=== PATIENT | male | born 1965 | race Caucasian/White ===

== ENCOUNTER 2017-08-27 21:39 | Inpatient (IN) | payer OTHER ==
[2017-08-28] MEDS ORDERED: SODIUM CHLORIDE 1,000 ML IV STA ×2 (00:48→14:26)
--- NOTE | 2017-08-28 00:49 | PDOC ---
History of Present Illness - General History Source: Patient Exam Limitations: No Limitations - History of Present Illness Travel History: Yes Initial Comments: 08/28/17 00:55 52 yo M with no pmhx who presents today with fever and diarrhea. Patient arrived from [facility] today. He denies any sick contacts while there. He denies any cough, vomiting, nausea, cp or SOB. He denies any allergies. <Franca Castrejon - Last Filed: 08/28/17 05:29> - General History Source: Patient <Baldomero Harris - Last Filed: 08/28/17 05:32> - General Chief Complaint: Diarrhea Stated Complaint: SICK Time Seen by Provider: 08/28/17 00:45 Past History <Franca Castrejon - Last Filed: 08/28/17 05:29> - Past Medical History Kidney Stones: Yes - Suicide/Smoking/Psychosocial Hx Smoking Status: No Smoking History: Never smoked Number of Cigarettes Smoked Daily: 0 Hx Alcohol Use: No Drug/Substance Use Hx: No Substance Use Type: None <Baldomero Harris - Last Filed: 08/28/17 05:32> - Past Medical History Allergies/Adverse Reactions: Allergies Allergy/AdvReac Type Severity Reaction Status Date / Time No Known Allergies Allergy Verified 08/27/17 21:49 Home Medications: Ambulatory Orders Albuterol Sulfate Inhaler - [Ventolin HFA Inhaler -] 2 inh PO Q4H PRN #1 inh 04/14 Azithromycin [Zithromax Z-STEPHEN (5 DAYS) -] 250 mg PO ASDIR #6 tablet 08/05/15 Review of Systems - Review of Systems Able to Perform ROS?: Yes Comments:: 08/28/17 00:55 CONSTITUTIONAL: Present: fever Absent: chills, diaphoresis, generalized weakness, malaise, loss of appetite HEENT: Absent: rhinorrhea, nasal congestion, throat pain, throat swelling, difficulty swallowing, mouth swelling, ear pain, eye pain, visual Changes CARDIOVASCULAR: Absent: chest pain, syncope, palpitations, irregular heart rate, lightheadedness , peripheral edema RESPIRATORY: Absent: cough, shortness of breath, dyspnea with exertion, orthopnea, wheezing, stridor, hemoptysis GASTROINTESTINAL: Present: diarrhea. Absent: abdominal pain, abdominal distension, nausea, vomiting, constipation, melena, hematochezia GENITOURINARY: Absent: dysuria, frequency, urgency, hesitancy, hematuria, flank pain, genital pain MUSCULOSKELETAL: Absent: myalgia, arthralgia, joint swelling SKIN: Absent: rash, itching, pallor HEMATOLOGIC/IMMUNOLOGIC: Absent: easy bleeding, easy bruising, lymphadenopathy, frequent infections ENDOCRINE: Absent: unexplained weight gain, unexplained weight loss, heat intolerance, cold intolerance NEUROLOGIC: Absent: headache, focal weakness or paresthesias, dizziness, unsteady gait, seizure, mental status changes, bladder or bowel incontinence PSYCHIATRIC: Absent: anxiety, depression, suicidal or homicidal ideation, hallucinations. <StuartviriFranca ruelas - Last Filed: 08/28/17 05:29> *Physical Exam - Vital Signs Last Vital Signs Temp Pulse Resp BP Pulse Ox 101.1 F H 144 H 20 103/71 99 08/27/17 21:47 08/27/17 21:47 08/27/17 21:47 08/27/17 21:47 08/27/17 21:47 - Physical Exam Comments: 08/28/17 00:56 GENERAL: Well developed, well nourished. Awake and alert. +In mild distress. HEENT: +Oral mucosa very dry. Normocephalic, atraumatic. PERRLA, EOMI. No conjunctival pallor. Sclerae are non-icteric. Oropharynx is clear. NECK: Supple. Full ROM. No JVD. Carotid pulses 2+ and symmetric, without bruits. No thyromegaly. No lymphadenopathy. CARDIOVASCULAR: Regular rate and rhythm. No murmurs, rubs, or gallops. Distal pulses are 2+ and symmetric. PULMONARY: No evidence of respiratory distress. Lungs clear to auscultation bilaterally. No wheezing, rales or rhonchi. ABDOMINAL: +Hyperactive bowel sounds. Soft. Non-tender. Non-distended. No rebound or guarding. No organomegaly. MUSCULOSKELETAL Normal range of motion at all joints. No bony deformities or tenderness. No CVA tenderness. EXTREMITIES: No cyanosis. No clubbing. No edema. No calf tenderness. SKIN: Warm and dry. Normal capillary refill. No rashes. No jaundice. NEUROLOGICAL: Alert, awake, appropriate. Cranial nerves 2-12 intact. No deficits to light touch and temperature in face, upper extremities and lower extremities. No motor deficits in the in face, upper extremities and lower extremities. Normoreflexic in the upper and lower extremities. Normal speech. PSYCHIATRIC: Cooperative. Good eye contact. Appropriate mood and affect. <Franca Castrejon - Last Filed: 08/28/17 05:29> - Vital Signs Last Vital Signs Temp Pulse Resp BP Pulse Ox 101.1 F H 144 H 20 103/71 99 08/27/17 21:47 08/27/17 21:47 08/27/17 21:47 08/27/17 21:47 08/27/17 21:47 <Baldomero Harris - Last Filed: 08/28/17 05:32> ED Treatment Course - LABORATORY CBC & Chemistry Diagram: 08/28/17 00:55 08/28/17 00:55 - RADIOLOGY Radiology Studies Ordered: 08/28/17 05:29 THIS IS A PRELIMINARY REPORT FROM [facility] DATE OF SERVICE: 2017-08-28 03:13:38 IMAGES: [id number] EXAM: CT ABDOMEN AND PELVIS without contrast HISTORY:Diarrhea. Rule out colitis. COMPARISON: None. FINDINGS:Lung bases are clear. The visualized cardiac chambers are normal size and configuration. Normal unenhanced liver, gallbladder, pancreas, spleen, adrenal glands and kidneys. The stomach and small bowel are normal. There is moderate inflammation of the proximal and mid descending colon which may be secondary to infection or inflammatory bowel disease. No bowel obstruction, abscess or free air. There is no aortic aneurysm. There is no significant retroperitoneal lymphadenopathy. The appendix is normal The urinary bladder and prostate gland are normal. No pelvic free fluid is identified. There is no significant pelvic lymphadenopathy. IMPRESSION: Moderate descending colitis may be secondary to infection or inflammatory bowel disease or THIS DOCUMENT HAS BEEN ELECTRONICALLY SIGNED Yuan Armendariz MD <Franca Castrejon - Last Filed: 08/28/17 05:29> - LABORATORY CBC & Chemistry Diagram: 08/28/17 00:55 08/28/17 00:55 <Baldomero Harris - Last Filed: 08/28/17 05:32> Medical Decision Making - Medical Decision Making 08/28/17 05:32 Dr. Harris: The scribe's documentation has been prepared under my direction and personally reviewed by me in its entirery. I confirm that the note above accurately reflects all work, treatment, procedures, and medical decision making performed by me. <Baldomero Harris - Last Filed: 08/28/17 05:32> *DC/Admit/Observation/Transfer - Attestations Scribe Attestion: 08/28/17 00:56 Documentation prepared by SYLVIA Agustin, acting as associate medical director for Baldomero Harris DO. <Franca Castrejon - Last Filed: 08/28/17 05:29> - Discharge Dispostion Admit: Yes <Baldomero Harris - Last Filed: 08/28/17 05:32> Diagnosis at time of Disposition: Colitis - Referrals Referrals: Joya Miranda MD [Primary Care Provider] -
[2017-08-28 01:04] LABS: BASOPHIL 0.3 % (0-2.0); EOSINOPHIL 0.1 % (0-4.5); MCH 30.4 pg (25.7-33.7); MCHC 33.7 g/dl (32.0-35.9); MEAN CELL VOLUME 90.2 fl (80-96); NEUTROPHILS 91.6 % (42.8-82.8); PLATELET COUNT 240 K/MM3 (134-434); RDW 13.3 % (11.9-15.9); WHITE BLOOD COUNT 19.2 K/mm3 (4.0-10.0)
[2017-08-28] MEDS: ACETAMINOPHEN 500 MG TABLET (FP) PO ONE ×2 (01:06→01:11)
[2017-08-28] MEDS ORDERED: ACETAMINOPHEN 325 MG TABLET (FP) ONE ×2 (01:07→06:46)
[2017-08-28 01:14] LABS: INR 1.28 (0.82-1.09); PROTHROMBIN TIME (PATIENT) 14.1 SEC (9.98-11.88)
[2017-08-28 01:25] LABS: ALBUMIN 3.8 g/dl (3.4-5.0); ANION GAP 10 (8-16); BILIRUBIN,TOTAL 1.6 mg/dL (0.2-1.0); CALCIUM 8.6 mg/dL (8.5-10.1); CO2 23 mmol/L (21-32); GLUCOSE,RANDOM 110 mg/dL (74-106); MAGNESIUM 1.8 mg/dL (1.8-2.4); SGOT/AST 17 U/L (15-37); SGPT/ALT 27 U/L (12-78); TOT PROT 6.6 g/dl (6.4-8.2)
[2017-08-28 01:27] LABS: ALK PHOS 76 U/L (45-117); CPK 170 IU/L (39-308); TROPONIN I < 0.02 ng/ml (0.00-0.05)
[2017-08-28 01:29] LABS: ACETONE SERUM NEGATIVE (NEGATIVE)
[2017-08-28] MEDS ORDERED: LEVOFLOXACIN 500 MG IVPB 100 ML IVPB ONE ×2 (01:58→03:00)
[2017-08-28] MEDS ORDERED: METRONIDAZOLE 500 MG PREMIXED 100 ML IVPB ONE ×3 (01:58→11:11)
[2017-08-28 02:52] LABS: URINE APPEARANCE CLEAR; URINE BILIRUBIN NEGATIVE (NEGATIVE); URINE BLOOD NEGATIVE (NEGATIVE); URINE COLOR LTYELLOW; URINE GLUCOSE (UA) NEGATIVE (NEGATIVE); URINE KETONE 1+ (NEGATIVE); URINE LEUK ESTERASE NEGATIVE (NEGATIVE); URINE NITRITE NEGATIVE (NEGATIVE); URINE PROTEIN NEGATIVE (NEGATIVE); URINE UROBILINOGEN NEGATIVE mg/dL (0.2-1.0)
[2017-08-28] MEDS ORDERED: KETOROLAC TROMETHAMINE 30 MG/1 ML VIAL IVPUSH ONE (03:48)
[2017-08-28] MEDS ORDERED: KETOROLAC TROMETHAMINE 30 MG/1 ML VIAL ONE (03:55)
--- NOTE | 2017-08-28 06:28 | HP ---
CHIEF COMPLAINT: diarrhea, fever PCP: none HISTORY OF PRESENT ILLNESS: This is a 52 year old male without significant past medical history who presented to the ED with a 2 day history of fever and diarrhea. Pt just returned from [facility] 2 nights ago. He states that the diarrhea started while he was still there but the fever started after. He reports that he was in all different environments/areas of the country and ate and drank freely. He reports some associated abdominal pain. He points to both sides of his abdomen in the most lateral aspects. He denies nausea or vomiting. He states that at times there is blood on his brown stool and that the stool is loose and watery. ER course was notable for: (1) WBC 19.2, lactic acid 0.7 (2) CT abd/pel c/w colitis Recent Travel: [facility] PAST MEDICAL HISTORY: kidney stones cholesterol PAST SURGICAL HISTORY: none Social History: Smoking: pt denies Alcohol: pt denies Drugs: pt denies Family History: mother alive, CVA age 68, HTN, osteoporosis father alive and well 5 brothers and 2 sisters without medical problems 2 daughters, one with asthma and allergies Allergies No Known Allergies Allergy (Verified 08/27/17 21:49) HOME MEDICATIONS: no current medications REVIEW OF SYSTEMS CONSTITUTIONAL: Present: fever, chills Absent: diaphoresis, generalized weakness, malaise, loss of appetite, weight change HEENT: Absent: rhinorrhea, nasal congestion, throat pain, throat swelling, difficulty swallowing, mouth swelling, ear pain, eye pain, visual changes CARDIOVASCULAR: Absent: chest pain, syncope, palpitations, irregular heart rate, lightheadedness , peripheral edema RESPIRATORY: Absent: cough, shortness of breath, dyspnea with exertion, orthopnea, wheezing, stridor, hemoptysis GASTROINTESTINAL: Absent: abdominal pain, abdominal distension, nausea, vomiting, constipation, melena, hematochezia GENITOURINARY: Present: diarrhea Absent: dysuria, frequency, urgency, hesitancy, hematuria, flank pain, genital pain MUSCULOSKELETAL: Absent: myalgia, arthralgia, joint swelling, back pain, neck pain SKIN: Absent: rash, itching, pallor HEMATOLOGIC/IMMUNOLOGIC: Absent: easy bleeding, easy bruising, lymphadenopathy, frequent infections ENDOCRINE: Absent: unexplained weight gain, unexplained weight loss, heat intolerance, cold intolerance NEUROLOGIC: Absent: headache, focal weakness or paresthesias, dizziness, unsteady gait, seizure, mental status changes, bladder or bowel incontinence PSYCHIATRIC: Absent: anxiety, depression, suicidal or homicidal ideation, hallucinations. PHYSICAL EXAMINATION Vital Signs - 24 hr 3 08/27/17 08/28/17 21:47 02:50 Temperature 101.1 F H 99 F Pulse Rate 144 H Respiratory 20 Rate Blood Pressure 103/71 O2 Sat by Pulse 99 Oximetry (%) GENERAL: Awake, alert, and fully oriented, in no acute distress. HEAD: Normal with no signs of trauma. EYES: Pupils equal, round and reactive to light, extraocular movements intact, sclera anicteric, conjunctiva clear. No lid lag. EARS, NOSE, THROAT: Ears normal, nares patent, oropharynx clear without exudates. Moist mucous membranes. NECK: Normal range of motion, supple without lymphadenopathy, JVD, or masses. LUNGS: Breath sounds equal, clear to auscultation bilaterally. No wheezes, and no crackles. No accessory muscle use. HEART: Regular rate and rhythm, normal S1 and S2 without murmur, rub or gallop. ABDOMEN: Soft, nontender, not distended, normoactive bowel sounds, no guarding, no rebound, no masses. No hepatomegaly or splenomegaly. MUSCULOSKELETAL: Normal range of motion at all joints. No bony deformities or tenderness. No CVA tenderness. UPPER EXTREMITIES: 2+ pulses, warm, well-perfused. No cyanosis. No clubbing. No peripheral edema. LOWER EXTREMITIES: 2+ pulses, warm, well-perfused. No calf tenderness. No peripheral edema. NEUROLOGICAL: Cranial nerves II-XII intact. Normal speech. Normal gait. PSYCHIATRIC: Cooperative. Good eye contact. Appropriate mood and affect. SKIN: Warm, dry, normal turgor, no rashes or lesions noted, normal capillary refill. Laboratory Results - last 24 hr 3 08/28/17 08/28/17 08/28/17 00:55 00:55 00:55 02:00 WBC 19.2 H D RBC 4.78 Hgb 14.5 Hct 43.2 MCV 90.2 MCH 30.4 MCHC 33.7 RDW 13.3 Plt Count 240 MPV 8.0 D Neutrophils % 91.6 H D Lymphocytes % 2.4 L D Monocytes % 5.6 Eosinophils % 0.1 D Basophils % 0.3 PT with INR 14.10 H INR 1.28 H Sodium 136 Potassium 3.7 Chloride 103 Carbon Dioxide 23 Anion Gap 10 BUN 18 D Creatinine 1.0 D Creat Clearance w eGFR > 60 Random Glucose 110 H Lactic Acid 0.7 Calcium 8.6 Magnesium 1.8 Total Bilirubin 1.6 H D AST 17 ALT 27 Alkaline Phosphatase 76 Creatine Kinase 170 Creatine Kinase Index 0.5 CK-MB (CK-2) < 1.000 Troponin I < 0.02 Total Protein 6.6 Albumin 3.8 Lipase 58 L Urine Color Urine Appearance Urine pH Urine Protein Urine Glucose (UA) Urine Ketones Urine Blood Urine Nitrite Urine Bilirubin Urine Urobilinogen Acetone, Qual Negative Blood Type Antibody Screen 3 Urine Color Ltyellow 08/28/17 02:41 Urine Appearance Clear 08/28/17 02:41 Urine pH 6.0 (5.0-8.0) 08/28/17 02:41 Urine Protein Negative (NEGATIVE) 08/28/17 02:41 Urine Glucose (UA) Negative (NEGATIVE) 08/28/17 02:41 Urine Ketones 1+ (NEGATIVE) H 08/28/17 02:41 Urine Blood Negative (NEGATIVE) 08/28/17 02:41 Urine Nitrite Negative (NEGATIVE) 08/28/17 02:41 Urine Bilirubin Negative (NEGATIVE) 08/28/17 02:[address] ABDOMEN AND PELVIS without contrast HISTORY:Diarrhea. Rule out colitis. COMPARISON: None. FINDINGS:Lung bases are clear. The visualized cardiac chambers are normal size and configuration. Normal unenhanced liver, gallbladder, pancreas, spleen, adrenal glands and kidneys. The stomach and small bowel are normal. There is moderate inflammation of the proximal and mid descending colon which may be secondary to infection or inflammatory bowel disease. No bowel obstruction, abscess or free air. There is no aortic aneurysm. There is no significant retroperitoneal lymphadenopathy. The appendix is normal The urinary bladder and prostate gland are normal. No pelvic free fluid is identified. There is no significant pelvic lymphadenopathy. IMPRESSION: Moderate descending colitis may be secondary to infection or inflammatory bowel disease or THIS DOCUMENT HAS BEEN ELECTRONICALLY SIGNED Yuan Armendariz MD 08/28/2017 05:25 EST ASSESSMENT/PLAN: 52yM with PMH kidney stones, hyperlipidemia presented to the ED with diarrhea and fever x 2 days. He is being admitted for further evaluation and treatment. Colitis, infectious - cont levaquin and flagyl - follow stool cultures and O&P - tylenol for fever - NS @ 125cc/hr - clear liquid DVT PPX - low risk, fully ambulatory, encourage ambulation FEN - NS@125cc/hr - Repeat BMP, Mg, Phos - clear liquid diet Dispo: Pt currently requires inpatient management of his emergent condition. Visit type - Emergency Visit Emergency Visit: Yes ED Registration Date: 08/27/17 Care time: The patient presented to the Emergency Department on the above date and was hospitalized for further evaluation of their emergent condition. - New Patient This patient is new to me today: Yes Date on this admission: 08/28/17 - Critical Care Critical Care patient: No
[2017-08-28] MEDS ORDERED: ACETAMINOPHEN 325 MG TABLET (FP) PO ONE (06:55)
[2017-08-28] MEDS: SODIUM CHLORIDE 1,000 ML IV SCH (07:01)
--- NOTE | 2017-08-28 10:27 | CON.GI ---
Consult Consult Specialty:: GI Reason for Consultation:: Diarrhea, recently traveled to to [facility] - History of Present Illness Chief Complaint: Abdominal pain, diarrhea of 3 days duration History of Present Illness: A 52 yo healthy male who came back from [facility] 1 day ago. Reports acute onset LLQ pain and frequent, brown, small volume, loose, non-bloody stools, while on the plane. Reports chills. Denies vomiting, skin rashes, joint, back involvement. While in [facility], no food, or water discretions. No ill contacts. No history of recent ABx use. History of recurrent, short, diarrheal episodes for which he takes OTC remedies. No history of IBD, or other chronic GI issues in the family - History Source History Provided By: Patient Limitations to Obtaining History: Language Barrier - Past Medical History Gastrointestinal: Yes: Other (Recurent episodes of diarrhea for many years, well controlled with OTC remedies). No: Ascites, Cancer, Constipation, Crohn's Disease, Diverticulitis, Diverticulosis, Esophageal Varices, Gastritis, GERD, GI Bleed, Hemorrhoids, Hiatal Hernia, Inflamatory Bowel Disease, Irritable Bowel Disease, Pancreatitis, Peptic Ulcer Disease, Ulcerative Colitis Hepatobiliary: No: Cirrhosis, Cholelithiasis, Cholecystitis, Choledocholithiasis , Hepatitis A, Hepatitis B, Hepatitis C Infectious Disease: No: C-Diff Rheumatology: No: Vasculitis Endocrine: No: Hyperthyroidism, Hypothyroidism - Past Surgical History Past Surgical History: Yes: None - Alcohol/Substance Use Hx Alcohol Use: No - Smoking History Smoking history: Never smoked Aproximately how many cigarettes per day: 0 Home Medications - Allergies Allergies/Adverse Reactions: Allergies Allergy/AdvReac Type Severity Reaction Status Date / Time No Known Allergies Allergy Verified 08/27/17 21:49 - Home Medications Home Medications: Ambulatory Orders Acetaminophen [Tylenol] 2 tab PO QID 08/28/17 Family Disease History - Family Disease History Family History: Unremarkable (Negative for colitis, chronic GI issues, specifically no history of IBD) Review of Systems - Review of Systems Constitutional: reports: Chills. denies: Lethargy, Loss of Appetite, Malaise, Night Sweats, Unintentional Wgt. Loss, Weakness Eyes: reports: No Symptoms HENT: reports: No Symptoms Neck: reports: No Symptoms Cardiovascular: reports: No Symptoms Respiratory: reports: No Symptoms Gastrointestinal: reports: Abdominal Pain, Bloating, Diarrhea, Nausea, Rectal Bleeding. denies: Dysphagia, Indigestion, Melena, Vomiting, Vomiting Blood Genitourinary: reports: No Symptoms Musculoskeletal: reports: No Symptoms Integumentary: reports: No Symptoms Neurological: reports: No Symptoms Endocrine: reports: No Symptoms Hematology/Lymphatic: reports: No Symptoms Physical Exam-GI Vital Signs: Vital Signs Period Temp Pulse Resp BP Sys/[place] Pulse Ox Last 24 Hr 97.6 F-101.1 F 98-144 20-97 101-107/61-71 98-99 Constitutional: Yes: Well Nourished, No Distress, Calm Eyes: Yes: Conjunctiva Clear HENT: Yes: Atraumatic Neck: Yes: Supple Cardiovascular: Yes: Regular Rate and Rhythm Respiratory: Yes: Regular, CTA Bilaterally Gastrointestinal Inspection: No: Ascites, Distention, Hernia, Scars ...Auscultate: Yes: Normoactive Bowel Sounds ...Palpate: Yes: Soft, Tenderness (LLQ). No: Firm/Rigid, Guarding, Hepatomegaly , Mass, Pulsatile Mass, Splenomegaly, Tenderness, Epigastium, Tenderness, Rebound ...Percussion: Yes: Tympanitic. No: Fluid Wave Musculoskeletal: No: Joint Swelling, Muscle Pain Edema: No Integumentary: No: Jaundice, Rash Labs: Laboratory Tests 08/28/17 08/28/17 08/28/17 00:55 00:55 00:55 WBC 19.2 H D RBC 4.78 Hgb 14.5 Hct 43.2 MCV 90.2 MCH 30.4 MCHC 33.7 RDW 13.3 Plt Count 240 MPV 8.0 D Neutrophils % 91.6 H D Lymphocytes % 2.4 L D Monocytes % 5.6 Eosinophils % 0.1 D Basophils % 0.3 PT with INR 14.10 H INR 1.28 H Sodium 136 Potassium 3.7 Chloride 103 Carbon Dioxide 23 Anion Gap 10 BUN 18 D Creatinine 1.0 D Creat Clearance w eGFR > 60 Random Glucose 110 H Lactic Acid Calcium 8.6 Magnesium 1.8 Total Bilirubin 1.6 H D AST 17 ALT 27 Alkaline Phosphatase 76 Creatine Kinase 170 Creatine Kinase Index 0.5 CK-MB (CK-2) < 1.000 Troponin I < 0.02 Total Protein 6.6 Albumin 3.8 Lipase 58 L Urine Color Urine Appearance Urine pH Ur Specific [place] Urine Protein Urine Glucose (UA) Urine Ketones Urine Blood Urine Nitrite Urine Bilirubin Urine Urobilinogen Acetone, Qual Negative Blood Type Antibody Screen 08/28/17 08/28/17 08/28/17 01:00 02:00 02:41 WBC RBC Hgb Hct MCV MCH MCHC RDW Plt Count MPV Neutrophils % Lymphocytes % Monocytes % Eosinophils % Basophils % PT with INR INR Sodium Potassium Chloride Carbon Dioxide Anion Gap BUN Creatinine Creat Clearance w eGFR Random Glucose Lactic Acid 0.7 Calcium Magnesium Total Bilirubin AST ALT Alkaline Phosphatase Creatine Kinase Creatine Kinase Index CK-MB (CK-2) Troponin I Total Protein Albumin Lipase Urine Color Ltyellow Urine Appearance Clear Urine pH 6.0 Ur Specific [place] <= 1.005 Urine Protein Negative Urine Glucose (UA) Negative Urine Ketones 1+ H Urine Blood Negative Urine Nitrite Negative Urine Bilirubin Negative Urine Urobilinogen Negative Acetone, Qual Blood Type O POSITIVE Antibody Screen Negative Active Orders - 24 Hr 08/28/17 00:48 EKG [ELECTROCARDIOGRAM] [CARD] Stat 08/28/17 00:55 BLOOD CULTURE Stat 08/28/17 02:41 Urine Culture [URINE CULTURE] Stat 08/28/17 04:30 STOOL CULTURE Stat STOOL FOR WBC BY GRAM STAIN Stat 08/28/17 05:31 Decision to Admit to Hospital Routine 08/28/17 06:29 Activity, OOB As tolerated Activity, Shower Ad renuka Vital Signs Q6H VTE Risk Level/Orders Routine 08/28/17 06:30 Sodium Chloride [Normal Saline -] 1,000 ml IV ASDIR 08/28/17 06:31 Early ambulation QS 08/28/17 07:21 PARASITES CRYPTO/GIARDIA AG Urgent 08/28/17 08:46 Physician Consultation Physician 1 Reminder: new phy cons See Order 08/28/17 10:00 Metronidazole 500 mg Premixed [Flagyl 500Mg Premixed Ivpb -] 100 ml IVPB Q8H-IV 08/28/17 22:00 Levofloxacin 500 mg Ivpb [Levaquin 500 mg Premixed Ivpb -] 100 ml IVPB HS 08/28/17 Breakfast Clear Liquid [DT] 08/28/17 Lunch Full Liquid Diet [DT] Home Medication List Medication Instructions Recorded Confirmed Type Acetaminophen [Tylenol] 2 tab PO QID 08/28/17 08/28/17 History Active Medications Generic Name Dose Route Start Last Admin Trade Name Isaak PRN Reason Stop Dose Admin Sodium Chloride 1,000 mls @ 125 mls/hr 08/28/17 06:30 08/28/17 07:01 Normal Saline - IV 125 mls/hr ASDIR ALHAJI Administration Metronidazole 100 mls @ 100 mls/hr 08/28/17 10:00 Flagyl 500mg Premixed Ivpb - IVPB Q8H-IV ALHAJI Levofloxacin 100 mls @ 100 mls/hr 08/28/17 22:00 Levaquin 500 Mg Premixed Ivpb - IVPB HS ALHAJI Imaging - Results Cat Scan: Report Reviewed Problem List - Problems (1) Diarrhea Code(s): R19.7 - DIARRHEA, UNSPECIFIED Qualifiers: Diarrhea type: presumed infectious Qualified Code(s): A09 - Infectious gastroenteritis and colitis, unspecified (2) Colitis Code(s): K52.9 - NONINFECTIVE GASTROENTERITIS AND COLITIS, UNSPECIFIED (3) Recent history of foreign travel Code(s): Z78.9 - OTHER SPECIFIED HEALTH STATUS Assessment/Plan Acute onset small volume diarrhea and abdominal pain with a CT scan of the abdomen suggestive of colitis. Likely infectious, likely bacterial. History of recurrent, mild diarrheal episodes that respond well to OTC remedies. No family history of chronic GI conditions/IBD. Non-toxic appearance Levaquin and flagyl started, stool work up ordered (would add c. diff toxin) Monitor electrolytes, BUN, WBC count, hematochezia Clear liquid diet There is a possibility of IBD. The patient will need a colonoscopy in 6-8 weeks (also due for screening)
[2017-08-28] MEDS: METRONIDAZOLE 500 MG PREMIXED 100 ML IVPB SCH ×2 (11:16→18:49)
[2017-08-28 14:13] VITALS: BMI 25.2
[2017-08-28] MEDS: ACETAMINOPHEN 325 MG TABLET (FP) PO PRN ×2 (14:52→22:53)
[2017-08-28] MEDS ORDERED: morphine CARPU-JECT 2 MG/1 ML DISP.SYRIN IVPUSH ONE (21:27)
[2017-08-28] MEDS ORDERED: LEVOFLOXACIN 500 MG IVPB 100 ML IVPB SCH (22:00)
[2017-08-28] MEDS: COD LIVER OIL/ZINC OXIDE PASTE 56 GM TUBE TP PRN (22:51)
[2017-08-28 23:57] LABS: HIV 1 & 2 AB NEGATIVE; HIV 1 AGp24 NEGATIVE
[2017-08-29] MEDS: METRONIDAZOLE 500 MG PREMIXED 100 ML IVPB SCH ×3 (02:58→17:48)
[2017-08-29] MEDS: LEVOFLOXACIN 750 MG IVPB 150 ML IVPB SCH (03:59)
[2017-08-29] MEDS: SODIUM CHLORIDE 1,000 ML IV SCH (06:33)
--- NOTE | 2017-08-29 07:09 | PN ---
Progress Note, Physician History of Present Illness: Not in distress. Non-toxic appearance. Reports generalized, lower abdominal pain. No nausea, vomiting. 4 green, watery bowel movements. Tmax 102. Tolerating liquids well - Current Medication List Current Medications: Active Medications Acetaminophen (Tylenol -) 650 mg PO Q6H PRN PRN Reason: FEVER OR PAIN Last Admin: 08/28/17 22:53 Dose: 650 mg Sodium Chloride (Normal Saline -) 1,000 mls @ 125 mls/hr IV ASDIR [facility] Last Admin: 08/29/17 06:33 Dose: 125 mls/hr Metronidazole (Flagyl 500mg Premixed Ivpb -) 100 mls @ 100 mls/hr IVPB Q8H-IV [facility] Last Admin: 08/29/17 02:58 Dose: 100 mls/hr Levofloxacin (Levaquin 750 Mg Premixed Ivpb -) 150 mls @ 100 mls/hr IVPB DAILY@ 0400 [facility] Last Admin: 08/29/17 03:59 Dose: 100 mls/hr Zinc Oxide (Desitin Diaper Rash Oint -) 1 applic TP ASDIR PRN PRN Reason: HYGEINE Last Admin: 08/28/17 22:51 Dose: 1 applic - Objective Vital Signs: Vital Signs Temperature 100.0 F H 08/29/17 02:00 Pulse Rate 95 H 08/29/17 02:00 Respiratory Rate 18 08/29/17 02:00 Blood Pressure 113/70 08/29/17 02:00 O2 Sat by Pulse Oximetry (%) 96 08/28/17 22:00 Constitutional: Yes: No Distress, Calm Eyes: Yes: Conjunctiva Clear HENT: No: Nasal Congestion Neck: Yes: Supple Cardiovascular: Yes: Regular Rate and Rhythm. No: Bradycardia, Tachycardia Respiratory: Yes: Regular, CTA Bilaterally Gastrointestinal: Yes: Normal Bowel Sounds, Soft, Other (see above). No: Ascites, Distention, Hematemesis, Palpable Mass, Pulsatile Mass, Rectal Bleeding , Tenderness, Epigastrium, Tenderness, Rebound, Vomiting Integumentary: No: Jaundice, Rash Neurological: Yes: Alert, Oriented Labs: INR, PTT INR 1.28 (0.82-1.09) H 08/28/17 00:55 Microbiology 08/28/17 01:00 Blood - Peripheral Venous Blood Culture - Preliminary NO GROWTH OBTAINED AFTER 24 HOURS, INCUBATION TO CONTINUE FOR 4 DAYS. 08/28/17 00:55 Blood - Peripheral Venous Blood Culture - Preliminary NO GROWTH OBTAINED AFTER 24 HOURS, INCUBATION TO CONTINUE FOR 4 DAYS. 08/28/17 04:30 Stool Gram Stain - Final 08/28/17 07:21 Stool Cryptosporidium Antigen - Final 08/28/17 07:21 Stool Giardia Antigen (ROSANNE) - Final Laboratory Results - last 24 hr 08/28/17 08/28/17 08/28/17 02:41 15:45 18:30 Lactic Acid 0.8 Urine Color Ltyellow Urine Appearance Clear Urine pH 6.0 Ur Specific [place] <= 1.005 Urine Protein Negative Urine Glucose (UA) Negative Urine Ketones 1+ H Urine Blood Negative Urine Nitrite Negative Urine Bilirubin Negative Urine Urobilinogen Negative HIV 1&2 Antibody Screen Negative HIV P24 Antigen Negative Abnormal Lab Results 08/28/17 02:41 Urine Ketones 1+ H Problem List - Problems (1) Diarrhea Code(s): R19.7 - DIARRHEA, UNSPECIFIED Qualifiers: Diarrhea type: presumed infectious Qualified Code(s): A09 - Infectious gastroenteritis and colitis, unspecified (2) Colitis Code(s): K52.9 - NONINFECTIVE GASTROENTERITIS AND COLITIS, UNSPECIFIED (3) Recent history of foreign travel Code(s): Z78.9 - OTHER SPECIFIED HEALTH STATUS Impression/Plan Impression/Plan: await c. diff results. clear liquid diet continue abx Visit type - Emergency Visit Emergency Visit: No - New Patient This patient is new to me today: No - Critical Care Critical Care patient: No
[2017-08-29 08:14] LABS: BASOPHIL 0.2 % (0-2.0); MCH 30.6 pg (25.7-33.7); MCHC 33.9 g/dl (32.0-35.9); MEAN CELL VOLUME 90.2 fl (80-96); MEAN PLT VOLUME 7.7 fl (7.5-11.1); NEUTROPHILS 90.5 % (42.8-82.8); PLATELET COUNT 200 K/MM3 (134-434); RDW 12.9 % (11.9-15.9); WHITE BLOOD COUNT 12.1 K/mm3 (4.0-10.0)
[2017-08-29 08:51] LABS: ANION GAP 8 (8-16); CO2 24 mmol/L (21-32); CREATININE 0.7 mg/dL (0.7-1.3); GLUCOSE,RANDOM 99 mg/dL (74-106); MAGNESIUM 1.8 mg/dL (1.8-2.4); PHOSPHOROUS 1.3 mg/dL (2.5-4.9)
[2017-08-29] MEDS: ACETAMINOPHEN 325 MG TABLET (FP) PO PRN (09:25)
[2017-08-29] MEDS ORDERED: POTASSIUM PHOSPHATE 20 MM in SODIUM CHLORIDE 250 ML IVPB ONE (10:00)
[2017-08-29] MEDS: KCL 10 MEQ IVPB 100 ML IVPB SCH ×3 (10:25→12:36)
--- NOTE | 2017-08-29 14:37 | PN ---
Progress Note (short form) - Note Progress Note: Subjective: The patient was seen and examined at the bedside, he reports feeling better today. He states he is still having mild diarrhea Current Medications Generic Name Dose Route Start Last Admin Trade Name Isaak PRN Reason Stop Dose Admin Acetaminophen 650 mg 08/28/17 14:36 08/29/17 09:25 Tylenol - PO 650 mg Q6H PRN Administration FEVER OR PAIN Sodium Chloride 1,000 mls @ 125 mls/hr 08/28/17 06:30 08/29/17 06:33 Normal Saline - IV 125 mls/hr ASDIR ALHAJI Administration Metronidazole 100 mls @ 100 mls/hr 08/28/17 10:00 08/29/17 09:25 Flagyl 500mg Premixed Ivpb - IVPB 100 mls/hr Q8H-IV ALHAJI Administration Levofloxacin 150 mls @ 100 mls/hr 08/29/17 04:00 08/29/17 03:59 Levaquin 750 Mg Premixed Ivpb - IVPB 100 mls/hr DAILY@0400 ALHAJI Administration Zinc Oxide 1 applic 08/28/17 21:28 08/28/17 22:51 Desitin Diaper Rash Oint - TP 1 applic ASDIR PRN Administration HYGEINE Objective : Vital Signs Period Temp Pulse Resp BP Sys/[place] Pulse Ox Last 24 Hr 99.5 F-102.7 F 95-122 18-24 113-126/57-80 96-98 Physical Exam: General: NAD, A&Ox3 Lungs: CTA bilaterally Heart: RRR, S1S2 Abd: Mild diffuse tenderness. Normoactive bowel sounds Ext: Warm, well-perfused. 2+ DP/PT bilaterally Neuro: CN 2-12 intact CBCD WBC 12.1 K/mm3 (4.0-10.0) H D 08/29/17 07:00 RBC 4.44 M/mm3 (4.00-5.60) 08/29/17 07:00 Hgb 13.6 GM/dL (11.7-16.9) 08/29/17 07:00 Hct 40.1 % (35.4-49) 08/29/17 07:00 MCV 90.2 fl (80-96) 08/29/17 07:00 MCHC 33.9 g/dl (32.0-35.9) 08/29/17 07:00 RDW 12.9 % (11.9-15.9) 08/29/17 07:00 Plt Count 200 K/MM3 (134-434) 08/29/17 07:00 MPV 7.7 fl (7.5-11.1) 08/29/17 07:00 CMP Sodium 138 mmol/L (136-145) 08/29/17 07:00 Potassium 3.3 mmol/L (3.5-5.1) L 08/29/17 07:00 Chloride 106 mmol/L (98-107) 08/29/17 07:00 Carbon Dioxide 24 mmol/L (21-32) 08/29/17 07:00 Anion Gap 8 (8-16) 08/29/17 07:00 BUN 5 mg/dL (7-18) L D 08/29/17 07:00 Creatinine 0.7 mg/dL (0.7-1.3) D 08/29/17 07:00 Creat Clearance w eGFR > 60 (>60) 08/28/17 00:55 Random Glucose 99 mg/dL (74-106) 08/29/17 07:00 Calcium 8.0 mg/dL (8.5-10.1) L 08/29/17 07:00 Total Bilirubin 1.6 mg/dL (0.2-1.0) H D 08/28/17 00:55 AST 17 U/L (15-37) 08/28/17 00:55 ALT 27 U/L (12-78) 08/28/17 00:55 Alkaline Phosphatase 76 U/L (45-117) 08/28/17 00:55 Total Protein 6.6 g/dl (6.4-8.2) 08/28/17 00:55 Albumin 3.8 g/dl (3.4-5.0) 08/28/17 00:55 CARDIAC ENZYMES Creatine Kinase 170 IU/L (39-308) 08/28/17 00:55 Troponin I < 0.02 ng/ml (0.00-0.05) 08/28/17 00:55 Microbiology 08/28/17 04:30 Stool Salmonella/Shigella Culture - Preliminary NO ENTERIC PATHOGENS, 24 HOURS, ON PRIMARY PLATES 08/28/17 04:30 Stool Yersinia Culture - Preliminary NO ENTERIC PATHOGENS, 24 HOURS, ON PRIMARY PLATES 08/28/17 04:30 Stool Vibrio Culture - Preliminary NO ENTERIC PATHOGENS, 24 HOURS, ON PRIMARY PLATES 08/28/17 04:30 Stool Escherichia coli 0157 Culture - Preliminary NO ENTERIC PATHOGENS, 24 HOURS, ON PRIMARY PLATES 08/28/17 02:41 Urine - Urine Clean Catch Urine Culture - Final NO GROWTH OBTAINED 08/28/17 16:20 Stool Clostridium difficile Antigen (ROSANNE) - Final 08/28/17 16:20 Stool Clostridium difficile Toxin Assay - Final 08/28/17 01:00 Blood - Peripheral Venous Blood Culture - Preliminary NO GROWTH OBTAINED AFTER 24 HOURS, INCUBATION TO CONTINUE FOR 4 DAYS. 08/28/17 00:55 Blood - Peripheral Venous Blood Culture - Preliminary NO GROWTH OBTAINED AFTER 24 HOURS, INCUBATION TO CONTINUE FOR 4 DAYS. 08/28/17 04:30 Stool Gram Stain - Final 08/28/17 07:21 Stool Cryptosporidium Antigen - Final 08/28/17 07:21 Stool Giardia Antigen (ROSANNE) - Final Assessment: This is a 52 year old male with no significant PMHx who presented to the ED with 2 days of fever and diarrhea. Plan: 1) ID: Sepsis 2/2 colitis - CTAP with diffuse, non-specific colitis with no evidence of obstruction or intra-abdominal abscess - WBC trending down - Tmax 103.3 yesterday, low grade temp this AM - Continue Levaquin - Continue Flagyl - IV fluids - Advance diet as tolerated - C.diff negative - Stool culture preliminary negative - Will need colonoscopy in 6-8 weeks with GI - Appreciate GI consult 2) F/E/N: - Monitor electrolytes - Hypophosphatemia: replete - Hypokalemia: replete - Full liquid diet for dinner 3) Prophylaxis: - Heparin 5,000u sq tid - SCDs bilaterally 4) Dispo: - Requires continued inpatient care CODE STATUS: FULL CODE Visit type - Emergency Visit Emergency Visit: Yes ED Registration Date: 08/28/17 Care time: The patient presented to the Emergency Department on the above date and was hospitalized for further evaluation of their emergent condition. - New Patient This patient is new to me today: Yes Date on this admission: 08/29/17 - Critical Care Critical Care patient: No
[2017-08-29] MEDS ORDERED: FLU VACCINE QUAD 60 MCG/0.5 ML (MDV 17-18) IM ONE (15:25)
[2017-08-29] MEDS: HEPARIN NA (PORCINE) 5,000 UNITS/ML 1ML VIAL SQ SCH (21:57)
[2017-08-29] MEDS: COD LIVER OIL/ZINC OXIDE PASTE 56 GM TUBE TP PRN (21:57)
[2017-08-30] MEDS: METRONIDAZOLE 500 MG PREMIXED 100 ML IVPB SCH ×3 (01:24→17:58)
[2017-08-30] MEDS: SODIUM CHLORIDE 1,000 ML IV SCH ×4 (01:25→23:26)
[2017-08-30] MEDS: LEVOFLOXACIN 750 MG IVPB 150 ML IVPB SCH (03:10)
[2017-08-30] MEDS: COD LIVER OIL/ZINC OXIDE PASTE 56 GM TUBE TP PRN (05:29)
[2017-08-30] MEDS: HEPARIN NA (PORCINE) 5,000 UNITS/ML 1ML VIAL SQ SCH ×3 (05:30→23:26)
[2017-08-30 08:15] LABS: BASOPHIL 0.5 % (0-2.0); MCH 30.6 pg (25.7-33.7); MCHC 34.1 g/dl (32.0-35.9); MEAN CELL VOLUME 89.8 fl (80-96); MEAN PLT VOLUME 7.9 fl (7.5-11.1); NEUTROPHILS 71.9 % (42.8-82.8); PLATELET COUNT 192 K/MM3 (134-434); RDW 13.3 % (11.9-15.9); WHITE BLOOD COUNT 6.2 K/mm3 (4.0-10.0)
[2017-08-30 09:04] LABS: ALBUMIN 2.6 g/dl (3.4-5.0); ANION GAP 5 (8-16); CALCIUM 7.7 mg/dL (8.5-10.1); CO2 27 mmol/L (21-32); CREATININE 0.7 mg/dL (0.7-1.3); GLUCOSE,RANDOM 86 mg/dL (74-106); SGOT/AST 14 U/L (15-37); SGPT/ALT 21 U/L (12-78)
[2017-08-30 09:05] LABS: ALK PHOS 52 U/L (45-117); BILIRUBIN,TOTAL 0.6 mg/dL (0.2-1.0); TOT PROT 5.2 g/dl (6.4-8.2)
--- NOTE | 2017-08-30 09:26 | PN ---
Physical Exam: SUBJECTIVE: Patient seen and examined Patient had 2 more episodes of diarrhea otherwise no fever today OBJECTIVE: Vital Signs Temperature 98.3 F 08/30/17 09:00 Pulse Rate 70 08/30/17 09:00 Respiratory Rate 20 08/30/17 09:00 Blood Pressure 102/57 08/30/17 09:00 O2 Sat by Pulse Oximetry (%) 98 08/29/17 09:00 GENERAL: The patient is awake, alert, and fully oriented, in no acute distress. HEAD: Normal with no signs of trauma. EYES: PERRL, extraocular movements intact, sclera anicteric, conjunctiva clear. No ptosis. ENT: Ears normal, nares patent, oropharynx clear without exudates, moist mucous membranes. NECK: Trachea midline, full range of motion, supple. LUNGS: Breath sounds equal, clear to auscultation bilaterally, no wheezes, no crackles, no accessory muscle use. HEART: Regular rate and rhythm, S1, S2 without murmur, rub or gallop. ABDOMEN: Soft, nontender, nondistended, normoactive bowel sounds, no guarding, no rebound, no hepatosplenomegaly, no masses. EXTREMITIES: 2+ pulses, warm, well-perfused, no edema. NEUROLOGICAL: Cranial nerves II through XII grossly intact. Normal speech, gait not observed. PSYCH: Normal mood, normal affect. SKIN: Warm, dry, normal turgor, no rashes or lesions noted CBCD WBC 6.2 K/mm3 (4.0-10.0) D 08/30/17 07:00 RBC 4.23 M/mm3 (4.00-5.60) 08/30/17 07:00 Hgb 12.9 GM/dL (11.7-16.9) 08/30/17 07:00 Hct 37.9 % (35.4-49) 08/30/17 07:00 MCV 89.8 fl (80-96) 08/30/17 07:00 MCHC 34.1 g/dl (32.0-35.9) 08/30/17 07:00 RDW 13.3 % (11.9-15.9) 08/30/17 07:00 Plt Count 192 K/MM3 (134-434) 08/30/17 07:00 MPV 7.9 fl (7.5-11.1) 08/30/17 07:00 CMP Sodium 139 mmol/L (136-145) 08/30/17 07:00 Potassium 3.5 mmol/L (3.5-5.1) 08/30/17 07:00 Chloride 107 mmol/L (98-107) 08/30/17 07:00 Carbon Dioxide 27 mmol/L (21-32) 08/30/17 07:00 Anion Gap 5 (8-16) L 08/30/17 07:00 BUN 4 mg/dL (7-18) L 08/30/17 07:00 Creatinine 0.7 mg/dL (0.7-1.3) 08/30/17 07:00 Creat Clearance w eGFR > 60 (>60) 08/30/17 07:00 Random Glucose 86 mg/dL (74-106) 08/30/17 07:00 Calcium 7.7 mg/dL (8.5-10.1) L 08/30/17 07:00 Total Bilirubin 0.6 mg/dL (0.2-1.0) D 08/30/17 07:00 AST 14 U/L (15-37) L 08/30/17 07:00 ALT 21 U/L (12-78) D 08/30/17 07:00 Alkaline Phosphatase 52 U/L (45-117) D 08/30/17 07:00 Total Protein 5.2 g/dl (6.4-8.2) L D 08/30/17 07:00 Albumin 2.6 g/dl (3.4-5.0) L D 08/30/17 07:00 CARDIAC ENZYMES Creatine Kinase 170 IU/L (39-308) 08/28/17 00:55 Troponin I < 0.02 ng/ml (0.00-0.05) 08/28/17 00:55 Urine Test Results Urine Color Ltyellow 08/28/17 02:41 Urine Appearance Clear 08/28/17 02:41 Urine pH 6.0 (5.0-8.0) 08/28/17 02:41 Ur Specific [place] <= 1.005 (1.005-1.025) 08/28/17 02:41 Urine Protein Negative (NEGATIVE) 08/28/17 02:41 Urine Glucose (UA) Negative (NEGATIVE) 08/28/17 02:41 Urine Ketones 1+ (NEGATIVE) H 08/28/17 02:41 Urine Blood Negative (NEGATIVE) 08/28/17 02:41 Urine Nitrite Negative (NEGATIVE) 08/28/17 02:41 Urine Bilirubin Negative (NEGATIVE) 08/28/17 02:41 Active Medications Generic Name Dose Route Start Last Admin Trade Name Freq PRN Reason Stop Dose Admin Acetaminophen 650 mg 08/28/17 14:36 08/29/17 09:25 Tylenol - PO 650 mg Q6H PRN Administration FEVER OR PAIN Heparin Sodium (Porcine) 5,000 unit 08/29/17 22:00 08/30/17 05:30 Heparin - SQ 5,000 unit TID ALHAJI Administration Sodium Chloride 1,000 mls @ 125 mls/hr 08/28/17 06:30 08/30/17 07:07 Normal Saline - IV Not Given ASDIR ALHAJI Metronidazole 100 mls @ 100 mls/hr 08/28/17 10:00 08/30/17 01:24 Flagyl 500mg Premixed Ivpb - IVPB 100 mls/hr Q8H-IV ALHAJI Administration Levofloxacin 150 mls @ 100 mls/hr 08/29/17 04:00 08/30/17 03:10 Levaquin 750 Mg Premixed Ivpb - IVPB 100 mls/hr DAILY@0400 ALHAJI Administration Zinc Oxide 1 applic 08/28/17 21:28 08/30/17 05:29 Desitin Diaper Rash Oint - TP 1 applic ASDIR PRN Administration HYGEINE Home Medications Medication Instructions Recorded Acetaminophen [Tylenol] 2 tab PO QID 08/28/17 Microbiology 08/28/17 04:30 Stool Salmonella/Shigella Culture - Final NO GROWTH OF SALMONELLA OR SHIGELLA SPECIES OBTAINED 08/28/17 04:30 Stool Campylobacter Culture - Final Campylobacter Jejuni 08/28/17 04:30 Stool Yersinia Culture - Final NO GROWTH OF YERSINIA SPECIES OBTAINED 08/28/17 04:30 Stool Vibrio Culture - Final NO GROWTH OF VIBRIO SPECIES OBTAINED 08/28/17 04:30 Stool Escherichia coli 0157 Culture - Final NO GROWTH OF E COLI 0157 OBTAINED 08/28/17 01:00 Blood - Peripheral Venous Blood Culture - Preliminary NO GROWTH OBTAINED AFTER 48 HOURS, INCUBATION TO CONTINUE FOR 3 DAYS. 08/28/17 00:55 Blood - Peripheral Venous Blood Culture - Preliminary NO GROWTH OBTAINED AFTER 48 HOURS, INCUBATION TO CONTINUE FOR 3 DAYS. 08/28/17 02:41 Urine - Urine Clean Catch Urine Culture - Final NO GROWTH OBTAINED 08/28/17 16:20 Stool Clostridium difficile Antigen (ROSANNE) - Final 08/28/17 16:20 Stool Clostridium difficile Toxin Assay - Final 08/28/17 04:30 Stool Gram Stain - Final 08/28/17 07:21 Stool Cryptosporidium Antigen - Final 08/28/17 07:21 Stool Giardia Antigen (ROSANNE) - Final CTAP with diffuse, non-specific colitis with no evidence of obstruction or intra -abdominal abscess - ASSESSMENT/PLAN: Assessment: This is a 52 year old male with no significant PMHx who presented to the ED with 2 days of fever and diarrhea. # s/p Sepsis due to acute colitis/ Diarrhea , stool culture is growing campylobactor Jejuni continie IV antibiotic Levaquin and flagyl # Acute diarrhea due to Most likely food poisoning continue antibiotic 5 more days if no further diarrhea in am , can be discharged home on po antibiotic for 5 more days , follow with Gi as an outpatient for Colonoscopy. # Electrolyte imbalance repleted , will repeat in am Prophylaxis: for DVT Heparin 5,000u sq tid - SCDs bilaterally CODE STATUS: FULL CODE Visit type - Emergency Visit Emergency Visit: Yes ED Registration Date: 08/28/17 Care time: The patient presented to the Emergency Department on the above date and was hospitalized for further evaluation of their emergent condition. - New Patient This patient is new to me today: Yes Date on this admission: 08/30/17 - Critical Care Critical Care patient: No
[2017-08-30] MEDS: ACETAMINOPHEN 325 MG TABLET (FP) PO PRN (09:34)
[2017-08-30] MEDS: POTASSIUM PHOSPHATE 15 MM in SODIUM CHLORIDE 250 ML IVPB ONE ×2 (10:30→11:24)
[2017-08-30] MEDS ORDERED: SODIUM CHLORIDE NASAL SPRAY 44 ML BOTTLE NS PRN (13:21)
[2017-08-30] MEDS: ACETAMINOPHEN/CAFFEINE/BUTALBITAL 1 TAB PO ONE ×2 (15:30→18:42)
[2017-08-31] MEDS: METRONIDAZOLE 500 MG PREMIXED 100 ML IVPB SCH ×2 (02:53→10:24)
[2017-08-31] MEDS: LEVOFLOXACIN 750 MG IVPB 150 ML IVPB SCH (04:36)
[2017-08-31] MEDS: HEPARIN NA (PORCINE) 5,000 UNITS/ML 1ML VIAL SQ SCH (05:36)
[2017-08-31 06:19] VITALS: TEMP 98.3
[2017-08-31 08:12] LABS: BASOPHIL 0.7 % (0-2.0); EOSINOPHIL 1.8 % (0-4.5); MCH 30.5 pg (25.7-33.7); MCHC 33.8 g/dl (32.0-35.9); MEAN CELL VOLUME 90.1 fl (80-96); MEAN PLT VOLUME 8.1 fl (7.5-11.1); NEUTROPHILS 52.9 % (42.8-82.8); PLATELET COUNT 231 K/MM3 (134-434); RDW 12.9 % (11.9-15.9); WHITE BLOOD COUNT 4.1 K/mm3 (4.0-10.0)
[2017-08-31 08:45] LABS: ANION GAP 8 (8-16); CALCIUM 8.2 mg/dL (8.5-10.1); CO2 28 mmol/L (21-32); GLUCOSE,RANDOM 90 mg/dL (74-106); MAGNESIUM 1.8 mg/dL (1.8-2.4); PHOSPHOROUS 2.5 mg/dL (2.5-4.9); SGOT/AST 18 U/L (15-37); SGPT/ALT 24 U/L (12-78)
[2017-08-31 08:46] LABS: ALK PHOS 54 U/L (45-117); BILIRUBIN,TOTAL 0.7 mg/dL (0.2-1.0); CREATININE 0.6 mg/dL (0.7-1.3); TOT PROT 5.6 g/dl (6.4-8.2)
[2017-08-31] MEDS ORDERED: PT OWN MED DRAWER 7, Y5N ONE (10:12)
[2017-08-31] MEDS: SODIUM CHLORIDE 1,000 ML IV SCH (10:25)
--- NOTE | 2017-08-31 11:45 | DS ---
Physical Examination Vital Signs: Vital Signs Temperature 98.3 F 08/31/17 06:17 Pulse Rate 70 08/31/17 06:17 Respiratory Rate 20 08/31/17 06:17 Blood Pressure 96/52 08/31/17 06:17 O2 Sat by Pulse Oximetry (%) 98 08/30/17 22:00 Findings/Remarks: Young man denies any nausea, vomiting, abd pain or Diarrhea with elevated TWBC, , dehydration and Ct shows diffuse collitis, responded to Po Hydration and IV Flagyl and Levofloxacin, today denies any fever, abd pain, nausea or vomiting. Constitutional: Yes: Well Nourished Eyes: Yes: WNL HENT: Yes: WNL, Atraumatic Neck: Yes: WNL, Supple, Trachea Midline Cardiovascular: Yes: WNL, Regular Rate and Rhythm, S1, S2. No: Murmur Respiratory: Yes: WNL, Regular, CTA Bilaterally Gastrointestinal: Yes: WNL, Normal Bowel Sounds, Soft. No: Tenderness, Epigastrium Musculoskeletal: Yes: WNL. No: Back Pain, Joint Stiffness Extremities: Yes: WNL Edema: No Peripheral Pulses WNL: Yes Integumentary: Yes: WNL Neurological: Yes: WNL, Alert ...Motor Strength: WNL, LUE, LLE, RUE, RLE Labs: CBC, BMP 08/31/17 07:30 08/31/17 07:30 Discharge Summary Reason For Visit: COLITIS Current Active Problems Colitis (Acute) Diarrhea (Acute) Recent history of foreign travel (Acute) Condition: Improved - Instructions Referrals: Joya Miranda MD [Primary Care Provider] - 1 Week Jone Paredes MD [Staff Physician] - 1 Week Disposition: HOME - Home Medications Comprehensive Discharge Medication List: Active Medications Levofloxacin (Levaquin) 750 mg PO DAILY@0600 [facility] Metronidazole (Flagyl -) 500 mg PO TID ALHAJI
[2017-08-31 11:47] VITALS: BP 119/63; PULSE 62
[2017-08-31] MEDS ORDERED: metroNIDAZOLE 250 MG TABLET PO SCH (14:00)
[2017-09-01] MEDS ORDERED: LEVOFLOXACIN 750 MG TABLET PO SCH (06:00)
== END 2017-08-31 13:50 | disposition home or self-care (01) | DRG 720 ==
LOC: JER 21:39 → JERBED 08-28 05:31 → OBSVTOIN 08-28 07:00 → J5S 08-28 11:29
PROVIDERS: ADMIT Internal Medicine; ATTEND Internal Medicine
DX: A41.9 Sepsis, unspecified organism (principal); E83.39 Other disorders of phosphorus metabolism; A05.8 Other specified bacterial foodborne intoxications; E78.5 Hyperlipidemia, unspecified; R10.32 Left lower quadrant pain; R50.9 Fever, unspecified; E87.6 Hypokalemia; E86.0 Dehydration; Z87.442 Personal history of urinary calculi; Z78.9 Other specified health status
CPT/HCPCS: 36415; 71010-TC; 74176-TC; 80048; 80053; 80074; 81003; 82009; 82553; 83605; 83690; 83735; 84100; 84484; 85025; 85610; 86850; 86900; 86901; 87040; 87045; 87046; 87086; 87205; 87324; 87328; 87329; 87389; 87449; 90688; 99285-25; G0008; G0378; J1644

== ENCOUNTER 2023-01-28 08:24 | Emergency (ER) | payer OTHER ==
[2023-01-28 08:34] VITALS: BP 122/85; PULSE 105; RESP 16; TEMP 97.6; BMI 29.2
[2023-01-28] MEDS ORDERED: METOCLOPRAMIDE HCL INJECTION 10 MG/2 ML VIAL IM ONE (08:46)
[2023-01-28] MEDS ORDERED: ACETAMINOPHEN 325 MG TABLET (FP) PO ONE (08:46)
[2023-01-28] MEDS ORDERED: IBUPROFEN 400 MG TABLET (FP) PO ONE ×2 (08:46→08:48)
[2023-01-28] MEDS ORDERED: ACETAMINOPHEN 325 MG TABLET (FP) ONE (08:48)
[2023-01-28] MEDS ORDERED: METOCLOPRAMIDE HCL INJECTION 10 MG/2 ML VIAL ONE (08:48)
[2023-01-28] MEDS ORDERED: FLUTICASONE PROP 0.05% 16 GM NASAL SPRAY NS ONE (09:05)
[2023-01-28] MEDS ORDERED: LIDOCAINE HCL 5% TOP OINTMENT 50 GM TUBE TP ONE (09:28)
[2023-01-28] MEDS ORDERED: LIDOCAINE HCL 2% JELLY 10 ML CARTRIDGE TP ONE (09:41)
[2023-01-28] MEDS ORDERED: LIDOCAINE HCL 2% JELLY 6 ML TP ONE (09:43)
[2023-01-28] MEDS ORDERED: KETOROLAC TROMETHAMINE 15 MG/ML VIAL IM ONE (10:40)
[2023-01-28] MEDS ORDERED: KETOROLAC TROMETHAMINE 15 MG/ML VIAL ONE (10:42)
== END 2023-01-28 10:59 | disposition home or self-care (01) ==
LOC: JERFT 08:24 → JER 08:24 → JERFT 10:59
PROC: 3E023GC Introduction of Other Therapeutic Substance into Muscle, Percutaneous Approach (ICD-10-PCS; principal; 2023-01-28)
DX: R51.9 Headache, unspecified (principal); J32.2 Chronic ethmoidal sinusitis
CPT/HCPCS: 70450-TC; 96372; 99284-25

== ENCOUNTER 2025-02-03 06:42 | Day surgery (SDC) | payer OTHER ==
[2025-02-01 13:54] VITALS: BMI 26.5
[2025-02-03] MEDS ORDERED: ceFAZolin SODIUM 1 GM VIAL ONE (11:01)
[2025-02-03] MEDS ORDERED: SODIUM CHLORIDE 0.9% P/F 10 ML VIAL IJ ONE (11:01)
[2025-02-03] MEDS ORDERED: ONDANSETRON 4 MG/2 ML VIAL ONE (11:01)
[2025-02-03] MEDS ORDERED: LIDOCAINE HCL/PF 2% SDV 5ML VIAL ONE (11:01)
[2025-02-03] MEDS ORDERED: DEXAMETHASONE SOD PHOSPHATE 4 MG/1 ML VIAL ONE (11:01)
[2025-02-03] MEDS ORDERED: MIDAZOLAM HCL 2 MG/2 ML SINGLE DOSE VIAL ONE (11:02)
[2025-02-03] MEDS ORDERED: ROCURONIUM BROMIDE 50 MG/5 ML SYRINGE ONE (11:03)
[2025-02-03] MEDS ORDERED: SUCCINYLCHOLINE CHLORIDE 200 MG/10 ML SYRINGE ONE (11:03)
[2025-02-03] MEDS ORDERED: PROPOFOL 20 ML ONE ×2 (11:04→13:08)
[2025-02-03] MEDS ORDERED: LIDOCAINE 1%/EPI 1:100000 (20 ML MULTI DOSE VIAL) ONE (11:09)
[2025-02-03] MEDS: ceFAZolin SODIUM 1 GM VIAL IVPB ONE (12:35)
[2025-02-03] MEDS ORDERED: HYDROmorphone HCl 2 MG/ML VIAL ONE (12:40)
[2025-02-03] MEDS: LIDOCAINE 1%/EPI 1:100000 (20 ML MULTI DOSE VIAL) INF ONE (12:52)
[2025-02-03] MEDS: OXYMETAZOLINE 0.05% NASAL SOLUTION 15 ML BOTTLE NS ONE (13:00)
[2025-02-03] MEDS ORDERED: ACETAMINOPHEN INJECTION 100 ML ONE (13:07)
[2025-02-03] MEDS ORDERED: SUGAMMADEX SODIUM 200 MG/2 ML VIAL ONE (13:09)
[2025-02-03] MEDS ORDERED: PROMETHAZINE HCL 25 MG/1 ML VIAL IVPB PRN (13:13)
[2025-02-03] MEDS ORDERED: oxyCODONE HCL 5 MG TABLET PO PRN (13:13)
[2025-02-03 15:22] VITALS: RESP 18
[2025-02-03 16:41] VITALS: BP 119/61; PULSE 81; TEMP 97.8
== END 2025-02-03 16:50 | disposition home or self-care (01) ==
LOC: JASU-SURG 06:42
PROVIDERS: ATTEND Otolaryngology
PROC: 8E09XBG Computer Assisted Procedure of Head and Neck Region, With Computerized Tomography (ICD-10-PCS; 2025-02-03)
PROC: 09BU8ZZ Excision of Right Ethmoid Sinus, Via Natural or Artificial Opening Endoscopic (ICD-10-PCS; principal; 2025-02-03 12:00)
DX: J32.2 Chronic ethmoidal sinusitis (principal)
CPT/HCPCS: 87070; 87102; 87186; 87205; 87210; 88304-TC; 94760; J0131